=== PATIENT | male | born 1980 | race Caucasian/White ===

== ENCOUNTER 2022-02-27 08:09 | Day surgery (SDC) | payer OTHER ==
[2022-02-08 15:23] VITALS: BMI 28.3
[2022-02-27] MEDS ORDERED: BUPIVACAINE HCL/EPINEPHRINE/PF 30 ML VIAL IJ ONE ×2 (09:23)
[2022-02-27] MEDS ORDERED: VANCOMYCIN 1,000 MG VIAL (RESTRICTED TO ID ONLY) ONE (09:23)
[2022-02-27] MEDS ORDERED: BUPIVACAINE HCL 100 ML ONE (09:38)
[2022-02-27] MEDS ORDERED: MIDAZOLAM HCL 2 MG/2 ML SINGLE DOSE VIAL ONE (09:38)
[2022-02-27] MEDS ORDERED: BUPIVACAINE LIPOSOME/PF (EXPAREL) 266 MG/20 ML VIAL ONE (09:38)
[2022-02-27] MEDS ORDERED: FENTANYL CITRATE/PF 50 MCG/ML VIAL ONE (09:38)
[2022-02-27] MEDS ORDERED: ONDANSETRON 4 MG/2 ML VIAL IVPUSH PRN (10:10)
[2022-02-27] MEDS ORDERED: oxyCODONE HCL 5 MG TABLET PO PRN ×2 (10:10)
[2022-02-27] MEDS ORDERED: LACTATED RINGERS SOLUTION 1,000 ML IV SCH (10:15)
[2022-02-27] MEDS ORDERED: BUPIVACAINE HCL 50 ML ONE (10:19)
[2022-02-27] MEDS ORDERED: TRANEXAMIC ACID 1000 MG/10 ML VIAL ONE (10:33)
[2022-02-27] MEDS ORDERED: ceFAZolin SODIUM 1 GM VIAL ONE (10:33)
[2022-02-27] MEDS ORDERED: DEXAMETHASONE SOD PHOSPHATE 4 MG/1 ML VIAL ONE (10:33)
[2022-02-27] MEDS ORDERED: PROPOFOL 40 ML ONE (10:37)
[2022-02-27] MEDS ORDERED: PROPOFOL 20 ML ONE (11:39)
[2022-02-27 13:12] VITALS: RESP 16
[2022-02-27 14:04] VITALS: TEMP 97.6
[2022-02-27 14:49] VITALS: PULSE 78
[2022-02-27 15:09] VITALS: BP 112/78
== END 2022-02-27 15:30 | disposition home or self-care (01) ==
LOC: FASU 08:09
PROVIDERS: ATTEND Orthopaedic Surgery
PROC: 0SBC4ZZ Excision of Right Knee Joint, Percutaneous Endoscopic Approach (ICD-10-PCS; principal; 2022-02-27 10:52)
PROC: 0Q8L0ZZ Division of Right Tarsal, Open Approach (ICD-10-PCS; 2022-02-27 10:52)
DX: S83.241A Other tear of medial meniscus, current injury, right knee, initial encounter (principal); M17.11 Unilateral primary osteoarthritis, right knee; X58.XXXA Exposure to other specified factors, initial encounter; Y93.9 Activity, unspecified; Y92.9 Unspecified place or not applicable
CPT/HCPCS: 73560-TC-RT-FY; 94760; C1713